=== PATIENT | male | born 1955 | race Caucasian/White ===

== ENCOUNTER 2020-09-04 12:32 | Inpatient (IN) | payer OTHER, SELFPAY ==
[~2020-09-04] VITALS: Ht 165.1 cm; Wt 65.0 kg
[2020-09-04 12:38] VITALS: BP_SYST 103
[2020-09-04] MEDS ORDERED: NACL 0.9% 1,000 ML IV ONE ×2 (12:45)
[2020-09-04] MEDS ORDERED: HALOPERIDOL LACTATE 5 MG/ML VIAL ONE (13:06)
[2020-09-04] MEDS ORDERED: LORazepam 2 MG/ML VIAL ONE (13:06)
[2020-09-04 13:14] LABS: BASOPHILS % (AUTO) 0.5 % (0.0-2.0); EOSINOPHILS % (AUTO) 0.3 % (0.0-4.0); HEMATOCRIT 35.4 % (36-54); HEMOGLOBIN 11.5 g/dL (14.0-18.0); LYMPHOCYTES % (AUTO) 22.4 % (20.5-51.5); MEAN CORPUSCULAR HEMOGLOBIN 32 pg (27-31); MEAN CORPUSCULAR HGB CONC 32 % (32-36); MEAN CORPUSCULAR VOLUME 100 fL (79.0-98.0); MONOCYTES # (AUTO) 0.8 K/uL (0.0-1.0); MONOCYTES % (AUTO) 8.8 % (1.7-9.3); NEUTROPHILS # (AUTO) 6.1 K/uL (1.8-7.7); PLATELET COUNT (AUTO) 378 K/uL (130-430); RED BLOOD CELL COUNT(AUTO) 3.54 MIL/uL (4.2-6.2); RED CELL DISTRIBUTION WIDTH 14.3 % (9.0-15.0); WHITE BLOOD COUNT (AUTO) 8.9 K/uL (4.8-10.8)
[2020-09-04 13:32] LABS: CALCIUM 7.9 mg/dL (8.4-11.0); CREATININE 0.96 mg/dL (0.55-1.30)
[2020-09-04 13:42] LABS: TOTAL BILIRUBIN 0.2 mg/dL (0.0-1.0)
[2020-09-04] MEDS ORDERED: INSULIN REGULAR, HUMAN 10 UNITS/0.1 ML INJ IVP ONE (13:45)
[2020-09-04] MEDS ORDERED: POTASSIUM CHLORIDE 20 MEQ TAB.PRT.SR PO ONE ×2 (13:45→20:45)
[2020-09-04 14:01] LABS: ACETONE, SERUM NEGATIVE (NEGATIVE)
[2020-09-04 14:08] LABS: ACETAMINOPHEN < 1 ug/mL (1-30)
[2020-09-04] MEDS ORDERED: INSULIN NPH/REGULAR 70-30, 100 UNITS/ML, 10 ML VIAL ONE (14:54)
[2020-09-04] MEDS ORDERED: GLUCOSE (DEXTROSE) ORAL GEL -Adults PO PRN (15:45)
[2020-09-04 16:09] VITALS: BP_SYST 164
[2020-09-04] MEDS: INSULIN REGULAR, HUMAN 100 UNITS/ML, 10 ML VIAL (humuLIN R) SUBCUT PRN (16:57)
[2020-09-04] MEDS ORDERED: NACL 0.9% 1,000 ML IV SCH (17:00)
[2020-09-04] MEDS ORDERED: INSULIN REGULAR, HUMAN 100 UNITS/ML, 10 ML VIAL (humuLIN R) SUBCUT SCH (18:00)
[2020-09-04] MEDS ORDERED: DEXTROSE 50% JECT 50 ML DISP.SYRIN IVP PRN (20:15)
[2020-09-04] MEDS ORDERED: DEXTROSE 50% JECT 50 ML DISP.SYRIN ONE (20:16)
[2020-09-04 20:26] LABS: CALCIUM 8.2 mg/dL (8.4-11.0); CREATININE 0.69 mg/dL (0.55-1.30)
[2020-09-04 20:30] LABS: POTASSIUM 2.8 mmol/L (3.5-5.1)
[2020-09-04] MEDS ORDERED: D5LR 1,000 ML IV SCH (20:45)
[2020-09-04 21:44] LABS: BILIRUBIN,URINE NEGATIVE (NEGATIVE); COLOR,URINE YELLOW (YELLOW); GLUCOSE,URINE 3+ (NEGATIVE); KETONES,URINE NEGATIVE (NEGATIVE); LEUKOCYTE ESTERASE ,URINE NEGATIVE (NEGATIVE); NITRITE, URINE NEGATIVE (NEGATIVE); PROTEIN URINE NEGATIVE (NEGATIVE); UROBILINOGEN,URINE 0.2 (0.2-1.0)
[2020-09-04 22:01] LABS: BLOOD, URINE TRACE (NEGATIVE); CLARITY/URINE SLIGHTLY HAZY (CLEAR)
[2020-09-04 22:03] VITALS: BP_SYST 114
[2020-09-04 22:22] LABS: BARBITURATE, URINE NEGATIVE (NEG <=200); BENZODIAZEPINE, URINE POSITIVE (NEG <=150); CANNABINOID, URINE NEGATIVE (NEG <=50); COCAINE, URINE NEGATIVE (NEG <=150); METHAMPHETAMINES SCREEN,URINE NEGATIVE (NEG <=500); OPIATE, URINE NEGATIVE (NEG <=100); PHENCYCLIDINE SCREEN,URINE NEGATIVE (NEG <=25); UR TRICYCLIC ANTIDEPRESSANTS NEGATIVE (NEG <=300); URINE AMPHETAMINE NEGATIVE (NEG <=500); URINE METHADONE NEGATIVE (NEG <=200); URINE OXYCODONE SCREEN NEGATIVE (NEG <=100); URINE PROPOXYPHENE SCREEN NEGATIVE (NEG <=300)
[2020-09-04 23:41] LABS: RBC,URINE 0-3 /HPF (0-3); WBC,URINE 0-3 /HPF (0-3)
[2020-09-04 23:42] LABS: BACTERIA,URINE FEW /HPF (None Seen)
[2020-09-04 23:43] LABS: MUCUS,URINE None Seen /LPF (None Seen)
[2020-09-05] VITALS: BP_SYST 121
[2020-09-05] MEDS ORDERED: POTASSIUM CHLORIDE 20 MEQ TAB.PRT.SR PO ONE (02:00)
[2020-09-05 04:03] VITALS: BP_SYST 143
[2020-09-05] MEDS ORDERED: LORazepam 2 MG/ML VIAL ONE ×5 (05:06→19:27)
[2020-09-05] MEDS: LORazepam 2 MG/ML VIAL IVP PRN ×5 (05:07→19:41)
[2020-09-05 07:37] LABS: BASOPHILS # (AUTO) 0.1 K/uL (0.0-0.2); BASOPHILS % (AUTO) 0.9 % (0.0-2.0); EOSINOPHILS # (AUTO) 0.1 K/uL (0.0-0.4); EOSINOPHILS % (AUTO) 1.3 % (0.0-4.0); HEMATOCRIT 36.1 % (36-54); HEMOGLOBIN 11.9 g/dL (14.0-18.0); LYMPHOCYTES % (AUTO) 19.2 % (20.5-51.5); MEAN CORPUSCULAR HEMOGLOBIN 32 pg (27-31); MEAN CORPUSCULAR HGB CONC 33 % (32-36); MEAN CORPUSCULAR VOLUME 97 fL (79.0-98.0); MONOCYTES # (AUTO) 0.7 K/uL (0.0-1.0); MONOCYTES % (AUTO) 6.8 % (1.7-9.3); NEUTROPHILS # (AUTO) 7.4 K/uL (1.8-7.7); NEUTROPHILS % (AUTO) 71.8 % (40.0-70.0); PLATELET COUNT (AUTO) 404 K/uL (130-430); RED BLOOD CELL COUNT(AUTO) 3.72 MIL/uL (4.2-6.2); RED CELL DISTRIBUTION WIDTH 14.3 % (9.0-15.0); WHITE BLOOD COUNT (AUTO) 10.3 K/uL (4.8-10.8)
[2020-09-05 07:53] LABS: CALCIUM 8.2 mg/dL (8.4-11.0); CREATININE 0.62 mg/dL (0.55-1.30); POTASSIUM 4.1 mmol/L (3.5-5.1); TOTAL BILIRUBIN 0.4 mg/dL (0.0-1.0)
[2020-09-05] MEDS: INSULIN REGULAR, HUMAN 100 UNITS/ML, 10 ML VIAL (humuLIN R) SUBCUT PRN ×3 (08:37→22:21)
[2020-09-05] MEDS ORDERED: POTASSIUM CHLORIDE 20 MEQ TAB.PRT.SR PO SCH (09:00)
[2020-09-05] MEDS ORDERED: ASPIRIN 81 MG TAB.CHEW PO ONE (09:30)
[2020-09-05] MEDS ORDERED: METOPROLOL SUCCINATE 25 MG TAB.SR.24H (TOPROL XL) PO ONE (09:30)
[2020-09-05] MEDS ORDERED: ATORVASTATIN 20 MG TABLET PO ONE (09:30)
[2020-09-05] MEDS ORDERED: CLOPIDOGREL BISULFATE 75 MG TABLET PO ONE (09:30)
[2020-09-05] MEDS ORDERED: metFORMIN HCL 500 MG TABLET PO ONE (09:30)
[2020-09-05] MEDS ORDERED: DEXTROSE 50% JECT 50 ML DISP.SYRIN IVP PRN (11:00)
[2020-09-05] MEDS ORDERED: QUEtiapine FUMARATE 25 MG TABLET PO ONE (11:45)
[2020-09-05] MEDS ORDERED: QUEtiapine FUMARATE 100 MG TABLET PO ONE (11:45)
[2020-09-05] MEDS ORDERED: DIPHENHYDRAMINE INJ 50 MG/ML VIAL IVP PRN (11:45)
[2020-09-05 11:59] VITALS: BP_SYST 160
[2020-09-05] MEDS ORDERED: DIPHENHYDRAMINE HCL 12.5 MG/5 ML UDC PO SCH (12:00)
[2020-09-05] MEDS ORDERED: TEMAZEPAM 15 MG CAPSULE PO PRN (12:15)
[2020-09-05] MEDS: HALOPERIDOL LACTATE 5 MG/ML VIAL IM PRN ×2 (12:50→16:37)
[2020-09-05] MEDS: DIPHENHYDRAMINE INJ 50 MG/ML VIAL IVP PRN ×2 (12:50→16:38)
[2020-09-05] MEDS ORDERED: HALOPERIDOL 5 MG TABLET (HALDOL) PO SCH (14:15)
[2020-09-05] MEDS: LORazepam 1 MG TABLET PO SCH ×2 (15:00→21:58)
[2020-09-05] MEDS: DIPHENHYDRAMINE HCL 50 MG CAPSULE PO SCH ×2 (15:00→21:58)
[2020-09-05 16:00] VITALS: BP_SYST 145
[2020-09-05] MEDS ORDERED: DIPHENHYDRAMINE INJ 50 MG/ML VIAL ONE (16:07)
[2020-09-05] MEDS: HALOPERIDOL 5 MG TABLET (HALDOL) PO SCH ×2 (17:00→21:45)
[2020-09-05] MEDS: metFORMIN HCL 500 MG TABLET PO SCH (17:30)
[2020-09-05] MEDS ORDERED: metFORMIN HCL 500 MG TABLET PO SCH (18:00)
[2020-09-05 20:00] VITALS: BP_SYST 153
[2020-09-05] MEDS ORDERED: QUEtiapine FUMARATE 100 MG TABLET PO SCH (21:00)
[2020-09-05] MEDS: POTASSIUM CHLORIDE 20 MEQ TAB.PRT.SR PO SCH (21:45)
[2020-09-05] MEDS: GABAPENTIN 300 MG CAPSULE PO SCH (21:45)
[2020-09-05] MEDS ORDERED: DIPHENHYDRAMINE HCL 50 MG CAPSULE ONE (21:57)
[2020-09-05] MEDS ORDERED: LORazepam 1 MG TABLET ONE (21:57)
[2020-09-06 00:18] VITALS: BP_SYST 157
[2020-09-06 04:22] VITALS: BP_SYST 146
[2020-09-06] MEDS ORDERED: LORazepam 2 MG/ML VIAL ONE ×5 (04:48→22:01)
[2020-09-06] MEDS: LORazepam 2 MG/ML VIAL IVP PRN ×5 (04:48→22:22)
[2020-09-06] MEDS: INSULIN REGULAR, HUMAN 100 UNITS/ML, 10 ML VIAL (humuLIN R) SUBCUT PRN ×4 (05:58→21:21)
[2020-09-06 08:00] VITALS: BP_SYST 132
[2020-09-06] MEDS: ATORVASTATIN 20 MG TABLET PO SCH (08:39)
[2020-09-06] MEDS: POTASSIUM CHLORIDE 20 MEQ TAB.PRT.SR PO SCH ×2 (08:39→21:18)
[2020-09-06] MEDS: ASPIRIN 81 MG TAB.CHEW PO SCH (08:40)
[2020-09-06] MEDS: CLOPIDOGREL BISULFATE 75 MG TABLET PO SCH (08:40)
[2020-09-06] MEDS: metFORMIN HCL 500 MG TABLET PO SCH ×2 (08:40→17:07)
[2020-09-06] MEDS: METOPROLOL SUCCINATE 25 MG TAB.SR.24H (TOPROL XL) PO SCH (08:41)
[2020-09-06] MEDS: HALOPERIDOL 5 MG TABLET (HALDOL) PO SCH ×3 (08:41→21:18)
[2020-09-06] MEDS ORDERED: DIPHENHYDRAMINE HCL 50 MG CAPSULE ONE ×3 (09:09→21:25)
[2020-09-06] MEDS ORDERED: LORazepam 1 MG TABLET ONE ×3 (09:09→21:25)
[2020-09-06] MEDS: DIPHENHYDRAMINE HCL 50 MG CAPSULE PO SCH ×3 (09:11→21:33)
[2020-09-06] MEDS: LORazepam 1 MG TABLET PO SCH ×3 (09:11→21:34)
[2020-09-06 12:00] VITALS: BP_SYST 146
[2020-09-06 16:00] VITALS: BP_SYST 154
[2020-09-06] MEDS ORDERED: QUEtiapine FUMARATE 100 MG TABLET PO SCH (18:00)
[2020-09-06 19:30] VITALS: BP_SYST 123
[2020-09-06] MEDS: GABAPENTIN 300 MG CAPSULE PO SCH (21:18)
[2020-09-07 00:44] VITALS: BP_SYST 144
[2020-09-07] MEDS: INSULIN REGULAR, HUMAN 100 UNITS/ML, 10 ML VIAL (humuLIN R) SUBCUT PRN ×3 (06:00→22:53)
[2020-09-07] MEDS: HALOPERIDOL LACTATE 5 MG/ML VIAL IM PRN (06:48)
[2020-09-07 07:26] VITALS: BP_SYST 98
[2020-09-07] MEDS: metFORMIN HCL 500 MG TABLET PO SCH ×2 (08:19→17:10)
[2020-09-07] MEDS: POTASSIUM CHLORIDE 20 MEQ TAB.PRT.SR PO SCH ×2 (08:19→22:33)
[2020-09-07] MEDS: ASPIRIN 81 MG TAB.CHEW PO SCH (08:19)
[2020-09-07] MEDS: ATORVASTATIN 20 MG TABLET PO SCH (08:20)
[2020-09-07] MEDS: METOPROLOL SUCCINATE 25 MG TAB.SR.24H (TOPROL XL) PO SCH (08:20)
[2020-09-07] MEDS: CLOPIDOGREL BISULFATE 75 MG TABLET PO SCH (08:20)
[2020-09-07] MEDS: HALOPERIDOL 5 MG TABLET (HALDOL) PO SCH ×3 (08:21→22:33)
[2020-09-07] MEDS ORDERED: LORazepam 1 MG TABLET ONE ×3 (08:24→22:33)
[2020-09-07] MEDS ORDERED: DIPHENHYDRAMINE HCL 50 MG CAPSULE ONE ×3 (08:25→22:31)
[2020-09-07] MEDS: LORazepam 1 MG TABLET PO SCH ×3 (08:26→22:32)
[2020-09-07] MEDS: DIPHENHYDRAMINE HCL 50 MG CAPSULE PO SCH ×3 (08:26→22:33)
[2020-09-07] MEDS: INSULIN GLARGINE 100 UNITS/ML 10 ML VIAL SUBCUT SCH (08:27)
[2020-09-07] MEDS: BALSAM PERU/CASTOR OIL 60 GM OINT...G. TP SCH (08:34)
[2020-09-07 11:20] VITALS: BP_SYST 130
[2020-09-07 14:31] LABS: BASOPHILS # (AUTO) 0.1 K/uL (0.0-0.2); BASOPHILS % (AUTO) 0.4 % (0.0-2.0); EOSINOPHILS # (AUTO) 0.1 K/uL (0.0-0.4); EOSINOPHILS % (AUTO) 0.7 % (0.0-4.0); HEMATOCRIT 43.4 % (36-54); LYMPHOCYTES % (AUTO) 13.8 % (20.5-51.5); MEAN CORPUSCULAR HEMOGLOBIN 33 pg (27-31); MEAN CORPUSCULAR HGB CONC 35 % (32-36); MEAN CORPUSCULAR VOLUME 97 fL (79.0-98.0); MONOCYTES % (AUTO) 6.5 % (1.7-9.3); NEUTROPHILS # (AUTO) 11.5 K/uL (1.8-7.7); NEUTROPHILS % (AUTO) 78.6 % (40.0-70.0); PLATELET COUNT (AUTO) 411 K/uL (130-430); RED BLOOD CELL COUNT(AUTO) 4.49 MIL/uL (4.2-6.2); WHITE BLOOD COUNT (AUTO) 14.6 K/uL (4.8-10.8)
[2020-09-07 14:57] LABS: CALCIUM 9.6 mg/dL (8.4-11.0); CREATININE 0.72 mg/dL (0.55-1.30); POTASSIUM 3.9 mmol/L (3.5-5.1)
[2020-09-07 15:03] LABS: ALBUMIN 3.3 g/dL (3.4-4.8); TOTAL BILIRUBIN 0.4 mg/dL (0.0-1.0)
[2020-09-07 16:47] VITALS: BP_SYST 122
[2020-09-07] MEDS: QUEtiapine FUMARATE 100 MG TABLET PO SCH (17:11)
[2020-09-07] MEDS: INSULIN NPH 100 UNITS/ML 10 ML VIAL SUBCUT SCH (17:12)
[2020-09-07 20:00] VITALS: BP_SYST 94
[2020-09-07] MEDS: GABAPENTIN 300 MG CAPSULE PO SCH (22:33)
[2020-09-07 23:54] VITALS: BP_SYST 112
[2020-09-08] MEDS ORDERED: LORazepam 2 MG/ML VIAL ONE (01:02)
[2020-09-08] MEDS: INSULIN REGULAR, HUMAN 100 UNITS/ML, 10 ML VIAL (humuLIN R) SUBCUT PRN ×3 (06:47→21:32)
[2020-09-08] MEDS: INSULIN NPH 100 UNITS/ML 10 ML VIAL SUBCUT SCH ×2 (06:48→17:00)
[2020-09-08] MEDS ORDERED: LORazepam 1 MG TABLET ONE ×3 (08:10→21:10)
[2020-09-08] MEDS ORDERED: DIPHENHYDRAMINE HCL 50 MG CAPSULE ONE ×2 (08:10→14:40)
[2020-09-08] MEDS: DIPHENHYDRAMINE HCL 50 MG CAPSULE PO SCH ×3 (08:13→21:00)
[2020-09-08] MEDS: ASPIRIN 81 MG TAB.CHEW PO SCH (08:13)
[2020-09-08] MEDS: ATORVASTATIN 20 MG TABLET PO SCH (08:13)
[2020-09-08] MEDS: POTASSIUM CHLORIDE 20 MEQ TAB.PRT.SR PO SCH ×2 (08:14→21:16)
[2020-09-08] MEDS: metFORMIN HCL 500 MG TABLET PO SCH ×2 (08:14→17:16)
[2020-09-08] MEDS: HALOPERIDOL 5 MG TABLET (HALDOL) PO SCH ×3 (08:15→21:16)
[2020-09-08] MEDS: LORazepam 1 MG TABLET PO SCH ×3 (08:15→21:15)
[2020-09-08] MEDS: METOPROLOL SUCCINATE 25 MG TAB.SR.24H (TOPROL XL) PO SCH (08:15)
[2020-09-08] MEDS: CLOPIDOGREL BISULFATE 75 MG TABLET PO SCH (08:15)
[2020-09-08] MEDS: INSULIN GLARGINE 100 UNITS/ML 10 ML VIAL SUBCUT SCH (08:23)
[2020-09-08] MEDS: BALSAM PERU/CASTOR OIL 60 GM OINT...G. TP SCH (08:23)
[2020-09-08 08:31] VITALS: BP_SYST 109
[2020-09-08 12:08] VITALS: BP_SYST 121
[2020-09-08 14:42] LABS: BASOPHILS # (AUTO) 0.1 K/uL (0.0-0.2); BASOPHILS % (AUTO) 0.5 % (0.0-2.0); EOSINOPHILS # (AUTO) 0.2 K/uL (0.0-0.4); EOSINOPHILS % (AUTO) 1.9 % (0.0-4.0); HEMATOCRIT 41.8 % (36-54); HEMOGLOBIN 14.1 g/dL (14.0-18.0); LYMPHOCYTES # (AUTO) 2.4 K/uL (1.0-5.5); LYMPHOCYTES % (AUTO) 22.3 % (20.5-51.5); MEAN CORPUSCULAR HEMOGLOBIN 33 pg (27-31); MEAN CORPUSCULAR HGB CONC 34 % (32-36); MEAN CORPUSCULAR VOLUME 97 fL (79.0-98.0); MONOCYTES # (AUTO) 0.9 K/uL (0.0-1.0); MONOCYTES % (AUTO) 8.5 % (1.7-9.3); NEUTROPHILS # (AUTO) 7.1 K/uL (1.8-7.7); NEUTROPHILS % (AUTO) 66.8 % (40.0-70.0); PLATELET COUNT (AUTO) 381 K/uL (130-430); RED BLOOD CELL COUNT(AUTO) 4.32 MIL/uL (4.2-6.2); RED CELL DISTRIBUTION WIDTH 14.7 % (9.0-15.0); WHITE BLOOD COUNT (AUTO) 10.7 K/uL (4.8-10.8)
[2020-09-08 14:53] LABS: CALCIUM 9.7 mg/dL (8.4-11.0); CREATININE 0.77 mg/dL (0.55-1.30); POTASSIUM 4.2 mmol/L (3.5-5.1)
[2020-09-08 14:59] LABS: ALBUMIN 3.2 g/dL (3.4-4.8); TOTAL BILIRUBIN 0.3 mg/dL (0.0-1.0)
[2020-09-08 16:06] VITALS: BP_SYST 110
[2020-09-08] MEDS: QUEtiapine FUMARATE 100 MG TABLET PO SCH (17:16)
[2020-09-08 20:00] VITALS: BP_SYST 104
[2020-09-08] MEDS ORDERED: DIPHENHYDRAMINE HCL 25 MG CAPSULE ONE (21:08)
[2020-09-08] MEDS: GABAPENTIN 300 MG CAPSULE PO SCH (21:16)
[2020-09-09 02:09] VITALS: BP_SYST 116
[2020-09-09] MEDS: INSULIN REGULAR, HUMAN 100 UNITS/ML, 10 ML VIAL (humuLIN R) SUBCUT PRN ×3 (06:41→20:51)
[2020-09-09] MEDS: INSULIN NPH 100 UNITS/ML 10 ML VIAL SUBCUT SCH ×2 (06:43→17:07)
[2020-09-09 08:00] VITALS: BP_SYST 109
[2020-09-09] MEDS ORDERED: LORazepam 1 MG TABLET ONE ×3 (08:01→20:36)
[2020-09-09] MEDS ORDERED: DIPHENHYDRAMINE HCL 50 MG CAPSULE ONE ×3 (08:01→20:35)
[2020-09-09] MEDS: LORazepam 1 MG TABLET PO SCH ×2 (08:04→14:33)
[2020-09-09] MEDS: BALSAM PERU/CASTOR OIL 60 GM OINT...G. TP SCH (08:04)
[2020-09-09] MEDS: ASPIRIN 81 MG TAB.CHEW PO SCH (08:05)
[2020-09-09] MEDS: ATORVASTATIN 20 MG TABLET PO SCH (08:05)
[2020-09-09] MEDS: CLOPIDOGREL BISULFATE 75 MG TABLET PO SCH (08:05)
[2020-09-09] MEDS: METOPROLOL SUCCINATE 25 MG TAB.SR.24H (TOPROL XL) PO SCH (08:05)
[2020-09-09] MEDS: DIPHENHYDRAMINE HCL 50 MG CAPSULE PO SCH ×3 (08:06→20:44)
[2020-09-09] MEDS: metFORMIN HCL 500 MG TABLET PO SCH ×2 (08:06→17:07)
[2020-09-09] MEDS: HALOPERIDOL 5 MG TABLET (HALDOL) PO SCH ×3 (08:06→20:44)
[2020-09-09] MEDS: POTASSIUM CHLORIDE 20 MEQ TAB.PRT.SR PO SCH ×2 (08:06→20:44)
[2020-09-09] MEDS: INSULIN GLARGINE 100 UNITS/ML 10 ML VIAL SUBCUT SCH (08:14)
[2020-09-09 11:27] VITALS: BP_SYST 107
[2020-09-09] MEDS: QUEtiapine FUMARATE 100 MG TABLET PO SCH (17:07)
[2020-09-09] MEDS ORDERED: LORazepam 1 MG TABLET PO PRN (18:45)
[2020-09-09] MEDS: GABAPENTIN 300 MG CAPSULE PO SCH (20:44)
[2020-09-10 00:32] VITALS: BP_SYST 108
[2020-09-10] MEDS: INSULIN NPH 100 UNITS/ML 10 ML VIAL SUBCUT SCH ×2 (06:35→17:29)
[2020-09-10] MEDS: INSULIN REGULAR, HUMAN 100 UNITS/ML, 10 ML VIAL (humuLIN R) SUBCUT PRN ×3 (06:40→17:31)
[2020-09-10 08:13] VITALS: BP_SYST 100
[2020-09-10] MEDS ORDERED: DIPHENHYDRAMINE HCL 50 MG CAPSULE ONE ×2 (09:15→17:17)
[2020-09-10] MEDS: ASPIRIN 81 MG TAB.CHEW PO SCH (09:16)
[2020-09-10] MEDS: CLOPIDOGREL BISULFATE 75 MG TABLET PO SCH (09:16)
[2020-09-10] MEDS: metFORMIN HCL 500 MG TABLET PO SCH ×2 (09:16→17:32)
[2020-09-10] MEDS: POTASSIUM CHLORIDE 20 MEQ TAB.PRT.SR PO SCH (09:17)
[2020-09-10] MEDS: DIPHENHYDRAMINE HCL 50 MG CAPSULE PO SCH ×2 (09:17→17:25)
[2020-09-10] MEDS: ATORVASTATIN 20 MG TABLET PO SCH (09:17)
[2020-09-10] MEDS: METOPROLOL SUCCINATE 25 MG TAB.SR.24H (TOPROL XL) PO SCH (09:17)
[2020-09-10] MEDS: HALOPERIDOL 5 MG TABLET (HALDOL) PO SCH ×2 (09:17→17:25)
[2020-09-10] MEDS: INSULIN GLARGINE 100 UNITS/ML 10 ML VIAL SUBCUT SCH (09:20)
[2020-09-10 12:01] VITALS: BP_SYST 110
[2020-09-10 16:06] VITALS: BP_SYST 119
[2020-09-10] MEDS: QUEtiapine FUMARATE 100 MG TABLET PO SCH (17:37)
[2020-09-11] MEDS ORDERED: INSULIN GLARGINE 100 UNITS/ML 10 ML VIAL SUBCUT SCH (09:00)
== END 2020-09-10 21:46 | DRG 48 ==
LOC: SED 12:32 → SMU 15:20 → STU 19:35 → SMU 09-07 21:00
PROVIDERS: ADMIT Internal Medicine; ATTEND Internal Medicine Hospice and Palliative Medicine
DX: E11.40 Type 2 diabetes mellitus with diabetic neuropathy, unspecified (principal); R45.851 Suicidal ideations; E44.1 Mild protein-calorie malnutrition; E78.5 Hyperlipidemia, unspecified; F29 Unspecified psychosis not due to a substance or known physiological condition; I25.10 Atherosclerotic heart disease of native coronary artery without angina pectoris; F32.3 Major depressive disorder, single episode, severe with psychotic features; Z20.822 Contact with and (suspected) exposure to COVID-19; F43.10 Post-traumatic stress disorder, unspecified; Z88.0 Allergy status to penicillin; Z91.14 Patient's other noncompliance with medication regimen; Z87.891 Personal history of nicotine dependence; Z68.23 Body mass index [BMI] 23.0-23.9, adult; I25.2 Old myocardial infarction
CPT/HCPCS: 36415; 36600; 71045; 80048; 80053; 80307; 81000-TC; 82009-TC; 82803-TC; 82962; 83036; 83880; 83930-TC; 85025; 93005; 93306; 96360; 96372; 97116-GP; 97530-GP; G0378; G0480; G0481; G0482; J1200; J1630; J1815; J2060; Q0163; U0003